=== PATIENT | female | born 1985 | race African-American/Black ===

== ENCOUNTER 2021-09-05 02:37 | Emergency (ER) | payer SELFPAY ==
[~2021-09-05] VITALS: Ht 165.1 cm; Wt 71.0 kg
[2021-09-05 03:13] LABS: CLARITY URINE CLEAR (CLEAR); COLOR URINE YELLOW (YELLOW); KETONES URINE NEGATIVE (NEGATIVE); LEUKOCYTE ESTERASE URINE TRACE (NEGATIVE); NITRITE URINE NEGATIVE (NEGATIVE); OCCULT BLOOD URINE NEGATIVE (NEGATIVE); PH URINE 7.5 (4.5-8.0); PROTEIN URINE NEGATIVE (NEGATIVE); SPECIFIC GRAVITY URINE 1.012 (1.005-1.030); UROBILINOGEN URINE 0.2 E.U./dL (0.2-1.0)
[2021-09-05] MEDS ORDERED: LIDOCAINE HCL 1% 10 MG/ML 10ML VIAL IJ SCH (03:45)
[2021-09-05] MEDS ORDERED: DOXYCYCLINE HYCLATE 100MG CAPSULE PO ONE (03:45)
[2021-09-05] MEDS ORDERED: LIDOCAINE HCL 1% 20ML VIAL (Pyxis) INJ INFIL ONE (03:45)
[2021-09-05] MEDS ORDERED: CEFTRIAXONE SODIUM 500 MG/VIAL IM ONE (03:45)
[2021-09-05] MEDS ORDERED: DOXY100T2 MT (03:47)
[2021-09-05 05:20] VITALS: BP 150/95
== END 2021-09-05 05:30 | disposition home or self-care (01) ==
LOC: ER 02:37
DX: N89.8 Other specified noninflammatory disorders of vagina (principal); A64 Unspecified sexually transmitted disease; J45.909 Unspecified asthma, uncomplicated; I10 Essential (primary) hypertension; Z98.890 Other specified postprocedural states
CPT/HCPCS: 81003; 81025; 87210; 96372; 99283; J0696; J3490

== ENCOUNTER 2021-10-28 23:23 | Emergency (ER) | payer BC ==
[~2021-10-28] VITALS: Ht 165.1 cm; Wt 70.4 kg
[~2021-10-28 23:23] MED LIST: DOXY100T2 MT
[2021-10-28 23:42] VITALS: BP 140/98
[2021-10-29 00:23] LABS: CLARITY URINE CLEAR (CLEAR); COLOR URINE YELLOW (YELLOW); KETONES URINE TRACE (NEGATIVE); LEUKOCYTE ESTERASE URINE 2+ (NEGATIVE); NITRITE URINE NEGATIVE (NEGATIVE); OCCULT BLOOD URINE NEGATIVE (NEGATIVE); PROTEIN URINE NEGATIVE (NEGATIVE); SPECIFIC GRAVITY URINE 1.022 (1.005-1.030); UROBILINOGEN URINE 0.2 E.U./dL (0.2-1.0)
[2021-10-29] MEDS ORDERED: LIDOCAINE HCL 1% 20ML VIAL (Pyxis) INJ INFIL STA (01:06)
[2021-10-29] MEDS ORDERED: CEFTRIAXONE SODIUM 500 MG/VIAL IM ONE (01:15)
[2021-10-29] MEDS ORDERED: METR-167 PO (01:41)
[2021-10-29] MEDS ORDERED: DOXY-326 PO (01:41)
== END 2021-10-29 02:32 | disposition home or self-care (01) ==
LOC: ER 23:23
DX: N76.0 Acute vaginitis (principal)
CPT/HCPCS: 81003; 81025; 87210; 96372; 99283; J0696; J3490; Z7610